=== PATIENT | male | born 1955 | race Asian ===

== ENCOUNTER → 2018-04-18 09:30 | Outpatient (CLI) | payer MEDICARE, SELFPAY ==
[2018-04-18 10:01] LABS: Kit/Specimen SENT
== END ==
PROVIDERS: PCP Nurse Practitioner Family; Visit Provider Internal Medicine
DX: N18.6 End stage renal disease (principal)
CPT/HCPCS: 36415

== ENCOUNTER → 2018-05-16 09:55 | Outpatient (CLI) | payer MEDICARE, SELFPAY ==
[2018-05-16 10:29] LABS: Kit/Specimen SENT
== END ==
PROVIDERS: PCP Nurse Practitioner Family; Visit Provider Internal Medicine
DX: N18.6 End stage renal disease (principal); N25.81 Secondary hyperparathyroidism of renal origin
CPT/HCPCS: 36415

== ENCOUNTER → 2018-05-16 09:58 | Outpatient (REF) | payer MEDICARE, SELFPAY ==
[2018-05-16 10:21] LABS: Kit/Specimen SENT
== END ==
LOC: LBN 09:58
PROVIDERS: PCP Nurse Practitioner Family; Visit Provider Internal Medicine
DX: N18.6 End stage renal disease (principal); Z49.32 Encounter for adequacy testing for peritoneal dialysis

== ENCOUNTER 2018-05-29 11:20 | Outpatient (CLI) | payer MEDICARE, SELFPAY ==
[2018-05-29 12:47] LABS: Kit/Specimen SENT
== END 2018-05-29 11:40 ==
PROVIDERS: PCP Nurse Practitioner Family; Visit Provider Internal Medicine Nephrology
DX: N18.6 End stage renal disease (principal); N25.81 Secondary hyperparathyroidism of renal origin
CPT/HCPCS: 36415

== ENCOUNTER 2018-05-29 14:06 | Outpatient (REF) | payer MEDICARE, SELFPAY ==
[2018-05-29 14:36] LABS: Kit/Specimen SENT
== END 2018-05-29 14:26 ==
LOC: LBN 14:06
PROVIDERS: PCP Nurse Practitioner Family; Visit Provider Internal Medicine
DX: N18.6 End stage renal disease (principal); Z49.32 Encounter for adequacy testing for peritoneal dialysis

== ENCOUNTER 2018-05-29 19:10 | Emergency (ER) | payer MEDICARE, SELFPAY ==
[2018-05-29] VITALS (26 sets, daily range): BP systolic 110–156; BP diastolic 65–91; PULSE 77–111; RESP 12–29; TEMP 36.6–37.1; O2SAT 92–100
--- NOTE | 2018-05-29 20:03 | DI.CT_ITS ---
SYMPTOM/DIAGNOSIS: DIFFUSE ABD PAIN ABDOMEN AND PELVIC CT: CT scan of the abdomen and pelvis was performed without intravenous or oral contrast material. Comparison MRI of the thoracic spine is 04/11/18. Mild dependent atelectatic changes are seen in the lung bases. There is a small hiatal hernia. The liver is normal in size. There are two hypodense masses seen within the liver. There is a 2.1 cm. mass in the dome of the right lobe of the liver. The second lesion is seen in the posterior segment of the liver inferiorly and measures 2 cm. in maximum diameter. The gallbladder is negative. No biliary ductal dilatation is seen. The unenhanced visualized portions of the pancreas, spleen and adrenal glands are unremarkable. There is marked atrophy of the kidneys bilaterally. This was present on prior MRI examinations. The urinary bladder is intact. There is diffuse concentric thickening of the wall of the urinary bladder. This may be due to inflammatory or infectious process. The reproductive organs are unremarkable. Note is made of vasectomy clips. There are bilateral small fat containing inguinal hernias present. There is atherosclerosis of the abdominal aorta but no aneurysmal dilatation. No significant abdominal or pelvic adenopathy or pneumoperitoneum is present. There is a catheter seen entering the right abdominal wall encoiled in the pelvis most consistent with peritoneal dialysis. There is a moderate amount of fluid in the pelvis likely reflecting peritoneal dialysis. The bowel shows no evidence of obstruction or inflammation. Mild degenerative changes are seen in the spine. Post laminectomy changes are seen at T 11 and T 12. Incidental note is made of a lipoma in the paraspinal soft tissues at approximately T 7. This was present on the MRI of the thoracic spine from 04/11/18. IMPRESSION: 1. No evidence of an acute abdomen or pelvis. 2. Two indeterminate hepatic lesions seen on this noncontrast examination. Further evaluation may be obtained with hepatic ultrasound or post contrast CT scan of the abdomen. 3. Atrophic kidneys with findings consistent with peritoneal dialysis. Fluid in the pelvis likely reflecting peritoneal dialysis. 4. Mild concentric bladder wall thickening which may reflect chronic inflammatory process.
--- NOTE | 2018-05-29 20:07 | ED.GENADUL_ITS ---
Discharge Plan Disposition Patient Disposition: HOME Condition: Stable Discharge Details Chief Complaint: Abd Prob Clinical Impression: Pancreatitis Primary Care Provider: Madie Thomas ED Provider: Stiven De Los Santos Home Meds and New Rx's Prescriptions: New ondansetron HCl [Zofran] 4 mg tablet 4 mg PO TID PRN (Reason: nausea and vomiting) 5 Days Qty: 30 RF: 0 oxycodone 5 mg tablet 5 mg PO Q4H PRN (Reason: pain) Qty: 12 RF: 0 Continue sevelamer carbonate [Renvela] 800 MG tablet 800 mg PO TID RF: 0 docusate sodium [DOK] 100 MG capsule 200 mg PO DAILY RF: 0 B complex-vitamin C-folic acid [Mary Ellen-Kaci] 0.8 MG tablet 0.8 mg PO RF: 0 amlodipine 10 MG tablet 10 mg PO DAILY Qty: 90 RF: 3 albuterol sulfate [ProAir HFA] 8.5 GM HFA aerosol inhaler 1 - 2 puff Inhalation Q4-6H PRN Qty: 1 RF: 1 fluticasone [Flovent HFA] 10.6 GM HFA aerosol inhaler 1 puff Inhalation BID Qty: 3 RF: 3 blood sugar diagnostic [OneTouch Ultra Test] 1 EACH strip 1 ea Miscellaneous BID Qty: 200 RF: 0 calcitriol 0.25 MCG capsule 0.25 mcg PO DAILY RF: 0 atorvastatin 40 MG tablet 40 mg PO DAILY Qty: 90 RF: 3 pantoprazole 20 MG tablet,delayed release (DR/EC) 40 mg PO DAILY Qty: 90 RF: 3 sertraline 50 MG tablet 50 mg PO DAILY Qty: 90 RF: 3 metoprolol tartrate 50 MG tablet 50 mg PO BID Qty: 180 RF: 3 Discharge Instructions Instructions: Oxycodone, Rapid Release (By mouth), Pancreatitis (ED) Additional Instructions: follow up with your primary care provider within a week if you have worsening pain, fevers, persistent vomit or feel more ill return to the emergency department for pain you can take 1000mg tylenol and 600mg ibuprofen every 6 hours. IF you need additional pain relief take 1 oxycodone Discharge Data Discharge Physician: Stiven De Los Santos Medical Decision Making MDM Narrative Medical decision making narrative: 62 yo male with hx of esrd on home dialysis, t2dm, htn, who comes in with acute onset abdominal pain starting around 4pm while at home, denies having this pain in the past. He has a distended abdomen and he is not sure if this is new or not for him, does have tenderness throughout the abdomen on exam. Will obtain CT to eval for pneumoperiotneum, cholecystitis, and lab work to eval for hepatitis vs pancreatitis. Also possibility of peritoneal fluid infection given his home dialysis, but patient is adamant that his fluid is clear that he used today and has had infection before and the fluid was cloudy and doesn't want his fluid evaluated at this time. He has capacity to make his own decisions and understands the risks of missing an infection including and disablity Pt remains stable, feels much better with pain meds, awaiting labs and imaging pt remains hd stable. labs show pancreatitis and leukocytosis likely from the pancreatitis, pt denies alcohol, and ct shows no acute findings. HE no longer has pain on abdominal exam. I recommended admission and spoke with nursing table games dual rate supervisor who stated that home peritoneal dialysis patients can be admitted here, but the patient declined admission at this time. He has the capacity to make his own decisions and understands the risks of leaving with pancreatitis including worsening pain and developing ards, and becoming disabled or dying and is willing to accept these risks. I am going to send him home with pain medication to take at home and will try to get expedited outpatient pcp appt. He understands he can return if he changes his mind and also understands to return immediately if pain is worse, he has shortness of breath or feels more ill in any way Differential Diagnosis pneumoperitoneum, pancreatitis, cholceystitis Imaging Data Radiologic Study: Attestation: I personally reviewed and interpreted this imaging study as follows: Imaging: CT Scan Radiologist's impression: no acute findings Lab Data Lab results reviewed: Yes I reviewed the patient's lab results. HPI - General Adult General Date/Time Provider Initiated Documentation: 05/29/18 19:38 . Limitations to Documentation: no limitations . Information obtained by: patient . History of Present Illness 62 year old M presents to the emergency department with the chief complaint of abdominal pain, described as severe, with intensity rated at 8. Quality is described as sharp, and is localized to the abdomen. Patient reports no radiation. Patient started experiencing this hour(s) (4) and it has been constant. No relieving factors improve symptom(s), No exacerbating factors reported . Patient notes no other symptoms.. Patient did receive the following treatments prior to arrival, none Related Data Home Medications Medication Instructions Recorded Confirmed sevelamer carbonate [Renvela] 800 mg PO TID tab-cap 03/08/17 B complex-vitamin C-folic acid 0.8 mg PO 10/15/17 [Mary Ellen-Kaci] docusate sodium [DOK] 200 mg PO DAILY tab-cap 10/15/17 calcitriol 0.25 mcg PO DAILY tab-cap 01/07/18 Previous Rx's Medication Instructions Recorded albuterol sulfate [ProAir HFA] 1 - 2 puff INHALATION Q4-6H PRN #1 10/15/17 inhaler amlodipine 10 mg PO DAILY #90 tab-cap 10/15/17 fluticasone [Flovent HFA] 1 puff INHALATION BID #3 inhaler 11/02/17 blood sugar diagnostic [OneTouch #200 strip 12/03/17 Ultra Test] atorvastatin 40 mg PO DAILY #90 tab-cap 03/07/18 pantoprazole 40 mg PO DAILY #90 tab-cap 03/07/18 sertraline 50 mg PO DAILY #90 tab-cap 03/07/18 metoprolol tartrate 50 mg PO BID #180 tab-cap 05/13/18 ondansetron HCl [Zofran] 4 mg PO TID PRN 5 Days #30 tab 05/29/18 oxycodone 5 mg PO Q4H PRN #12 tab 05/29/18 Allergies Allergy/AdvReac Type Severity Reaction Status Date / Time No Known Allergies Allergy Unverified 05/29/18 22:10 General Stated Complaint: Abd Prob ANIL: 3 Review of Systems Review of Systems All systems reviewed & are unremarkable except as noted in HPI and below Constitutional Denies chills, Denies fever(s) and Denies weakness Eyes Patient Denies loss of vision ENT Denies change in voice Cardiovascular Denies chest pain and Denies dyspnea Respiratory Denies dyspnea Gastrointestinal Denies vomiting Genitourinary Denies dysuria Musculoskeletal Denies joint swelling Integumentary/Breasts Denies rash Neurologic Denies loss of vision and Denies weakness Psychiatric Denies depression Endocrine Denies cold intolerance and Denies heat intolerance Allergic/Immunologic Reports urticaria PFSH Family History Mother Osteoarthritis Father No problems noted. Brother No problems noted. Brother No problems noted. Brother No problems noted. Brother No problems noted. Sister No problems noted. Medical History Asthma ESRD (end stage renal disease) HLD (hyperlipidemia) HTN (hypertension) Schwannoma of spinal cord T2DM (type 2 diabetes mellitus) Social History Smoking/Tobacco Use Status: Former Tobacco Use Surgical History Peritoneal Shunt T11-T12 Laminectomy & Subtotal Resection of a Schwannoma motor nerve root (11/22) Tunneled hemodialysis catheter placement (05/25/17) Exam Const General: no acute distress Orientation: alert HENMT Head: normal to inspection Ears: external ears normal General nose exam: external nose normal Mouth: moist mucous membranes Eyes General: appearance normal, both eyes and all related structures Neck Neck: normal visual inspection Resp Effort & Inspection: normal respiratory effort and able to speak in complete sentences Cardio Rate: regular rate GI Inspection: distended Palpation: tender in the LLQ, in the RLQ and in the RUQ Skin General skin exam: no rashes or lesions noted Neuro General: alert and oriented x3 Extrem General: normal to inspection Psych Mental Status: mental status grossly normal Course Vital Signs Temperature 36.6 C 05/29/18 19:28 Pulse 77 05/29/18 19:28 Respiratory Rate 05/29/18 19:28 Blood Pressure 117/65 05/29/18 19:28 Pulse Oximetry 97 05/29/18 19:28 Temperature 36.6 C 05/29/18 19:28 Pulse 77 05/29/18 19:28 Respiratory Rate 12 05/29/18 19:28 Blood Pressure 117/65 05/29/18 19:28 Pulse Oximetry 97 05/29/18 19:28
[2018-05-29] MEDS: Normal Saline Flush 10 ML SYR IVP (20:22)
[2018-05-29] MEDS: HYDROmorphone 2 MG/ML VIAL 1 MG IVP (20:22)
[2018-05-29 20:38] LABS: Abs Immature Grans 0.15 k/cumm (0.0-0.09); Basophils % 0.2; HCT 35.8 % (40.0-50.0); HGB 11.8 g/dL (13.5-17.5); Mean Corpuscular Hemoglobin 24.6 pg (27.0-33.0); Mean Corpuscular Volume 74.7 fL (80-95); RBC 4.79 m/cumm (4.50-6.00); RBC Distribution Width 17.3 % (11.8-14.1); White Blood Cell Count 18.48 k/cumm (4.4-10.8)
[2018-05-29 20:54] LABS: ALT 36 U/L (12-78); AST 17 U/L (15-37); Alkaline Phosphatase 252 U/L (46-116); Anion Gap 12.4 mmol/L (3-11); BUN 67 mg/dL (7-18); Bilirubin, Total 0.3 mg/dL (0.2-1.0); CO2 26.6 mmol/L (21.0-32.0); Calcium 8.7 mg/dL (8.5-10.1); Chloride 92 mmol/L (98-107); Estimated GFR 3.95 (mL/min/1.73m2); Glucose 182 mg/dL (70-100); Lipase 776 U/L (73-393); Sodium 131 mmol/L (136-145); Total Protein 7.8 g/dL (6.4-8.2)
[2018-05-29 21:03] LABS: CREATININE 12.85 mg/dL (0.70-1.30); Potassium 2.9 mmol/L (3.5-5.1)
[2018-05-29 21:07] LABS: Absolute Basophil Count 0.04 k/cumm (0.0-0.2)
[2018-05-29 21:35] LABS: Prothrombin Time 9.4 sec (9.3-10.8)
[2018-05-29] MEDS: Potassium Chloride 20 MEQ TABCR 40 MEQ PO (21:35)
[2018-05-29 22:03] LABS: Absolute Neutrophil Count 14.41 k/cumm (1.2-6.7)
--- NOTE | 2018-05-29 22:03 | DI.VRAD_ITS ---
EXAM: CT Abdomen and Pelvis Without Intravenous Contrast CLINICAL HISTORY: 62 years old, male; Pain; Abdominal pain; Additional info: Pt spoke very little azeri, did not understand breathing instructions. TECHNIQUE: Axial computed tomography images of the abdomen and pelvis without intravenous contrast. Coronal and sagittal reformatted images were created and reviewed. COMPARISON: Abdominal radiographs 05/17/2017. FINDINGS: Lung bases: Dependent changes in the lung bases. Mediastinum: Small hiatal hernia. ABDOMEN: Liver: Low attenuation indeterminate lesions in the liver measuring 2.0 cm near the hepatic dome and 1.9 cm in the inferior right lobe, incompletely evaluated without intravenous contrast. Gallbladder and bile ducts: Unremarkable. No calcified stones. No ductal dilation. Pancreas: Unremarkable. No ductal dilation. Spleen: Unremarkable. No splenomegaly. Adrenals: Unremarkable. No mass. Kidneys and ureters: Bilateral severe renal atrophy in the [place] kidneys. No obstructing stones. No hydronephrosis. Stomach and bowel: Unremarkable. No obstruction. No mucosal thickening. PELVIS: Appendix: No findings to suggest acute appendicitis. Bladder: Mild circumferential bladder wall thickening with mild submucosal fat deposition anteriorly, likely related to chronic inflammation. No stones. Reproductive: Vasectomy clips. ABDOMEN and PELVIS: Intraperitoneal space: Moderate volume of ascites, most likely related to peritoneal dialysis. No free air. Bones/joints: No acute fracture. No dislocation. Soft tissues: 4.2 cm lipoma in the right paraspinal muscles. Periumbilical scarring. Small fat-containing inguinal hernias. Vasculature: Mild atherosclerotic calcification. No abdominal aortic aneurysm. Lymph nodes: Unremarkable. No enlarged lymph nodes. Tubes, lines and devices: Percutaneous catheter entering the right anterior abdominal wall and coiling in the pelvis, consistent with a peritoneal dialysis catheter. No fluid collection along the course of the catheter. IMPRESSION: 1. No acute findings in the abdomen or pelvis. 2. Indeterminate liver lesions in the right lobe, incompletely characterized without intravenous contrast. Further evaluation with right upper quadrant ultrasound and/or contrast-enhanced imaging if clinically possible is recommended. 3. Peritoneal dialysis catheter with moderate volume of ascites, likely related to peritoneal dialysis. No fluid collection in the course of the catheter. 4. Mild circumferential bladder wall thickening likely related to chronic cystitis. 5. Small hiatal hernia. Dictated and Authenticated by: Liliya Pradhan MD. Ordering:SHYAM JEAN MD
[2018-05-29 22:04] LABS: Absolute Eosinophil Count 0.37 k/cumm (0.0-0.7); Absolute Lymphocyte Count 2.96 k/cumm (1.2-3.4); Absolute Monocyte Count 0.74 k/cumm (0.11-0.7); Atypical Lymphocytes % 4
[2018-05-29 22:05] LABS: Anisocytosis 1+; Nucleated RBC 1 /100WBC; Poikilocytes 2+
[2018-05-29 22:06] LABS: Microcytosis 1+
[2018-05-29 22:12] LABS: Platelet Count 370 x1000/uL (130-400)
[2018-05-29 22:14] LABS: Diff Comment Manual Differential
[2018-05-29] MEDS: oxyCODONE 5 MG TAB PO (22:27)
[2018-05-29] MEDS: oxyCODONE 5 MG TAB 10 MG (22:28)
[2018-05-29] MEDS: Ondansetron O.D.T. 4 MG TABEF PO (22:28)
--- NOTE | 2018-05-30 11:35 | PDOC.ERCMPRO ---
Care Management Progress Note 05/30/18-Pt seen on 05/29/[address] Yves De Los Santos. F/u request ABY faxed to [facility]. as Pt's PCP, is Madie Thomas NP.
== END 2018-05-29 22:42 | disposition home or self-care (01) ==
PROVIDERS: Emergency Provider Emergency Medicine; PCP Nurse Practitioner Family
DX: K85.90 Acute pancreatitis without necrosis or infection, unspecified (principal); E87.6 Hypokalemia; Z53.29 Procedure and treatment not carried out because of patient's decision for other reasons; E11.22 Type 2 diabetes mellitus with diabetic chronic kidney disease; I12.0 Hypertensive chronic kidney disease with stage 5 chronic kidney disease or end stage renal disease; N18.6 End stage renal disease; Z99.2 Dependence on renal dialysis
CPT/HCPCS: 36415; 80053; 83690; 93005; 96374; 99285; 74176; 85025; 85610; 93010

== ENCOUNTER 2018-06-03 19:15 | Outpatient (REF) | payer MEDICARE, SELFPAY ==
[2018-06-03 20:18] LABS: ALT 10 U/L (12-78); AST 19 U/L (15-37); Albumin 2.5 g/dL (3.4-5.0); Alkaline Phosphatase 194 U/L (46-116); Anion Gap 11.7 mmol/L (3-11); BUN 54 mg/dL (7-18); Bilirubin, Total 0.2 mg/dL (0.2-1.0); CO2 28.3 mmol/L (21.0-32.0); Calcium 8.6 mg/dL (8.5-10.1); Chloride 89 mmol/L (98-107); Glucose 211 mg/dL (70-100); Lipase 603 U/L (73-393); Sodium 129 mmol/L (136-145); Total Protein 6.9 g/dL (6.4-8.2)
[2018-06-03 20:29] LABS: CREATININE 12.19 mg/dL (0.70-1.30); Potassium 2.9 mmol/L (3.5-5.1)
[2018-06-03 21:07] LABS: Abs Immature Grans 0.27 k/cumm (0.0-0.09); HCT 35.3 % (40.0-50.0); HGB 11.6 g/dL (13.5-17.5); Mean Corp. HGB Concentration 32.9 g/dL (32.0-36.0); Mean Corpuscular Hemoglobin 24.4 pg (27.0-33.0); Mean Corpuscular Volume 74.3 fL (80-95); Mean Platelet Volume 9.8 fL (8.0-11.0); Platelet Count 336 x1000/uL (130-400); RBC 4.75 m/cumm (4.50-6.00); White Blood Cell Count 10.43 k/cumm (4.4-10.8)
[2018-06-03 21:40] LABS: Absolute Eosinophil Count 0.83 k/cumm (0.0-0.7); Absolute Lymphocyte Count 1.04 k/cumm (1.2-3.4); Absolute Monocyte Count 1.04 k/cumm (0.11-0.7); Diff Comment Manual Differential; Microcytosis 3+
== END 2018-06-03 19:35 ==
LOC: NCHCN 19:15
PROVIDERS: Nurse Practitioner Adult Health; PCP Nurse Practitioner Family; Visit Provider Nurse Practitioner Family
DX: K85.90 Acute pancreatitis without necrosis or infection, unspecified (principal); E87.6 Hypokalemia; E87.1 Hypo-osmolality and hyponatremia; R74.9 Abnormal serum enzyme level, unspecified
CPT/HCPCS: 80053; 83690; 85025

== ENCOUNTER 2018-06-10 16:34 | Outpatient (REF) | payer SELFPAY ==
[2018-06-10 19:44] LABS: Potassium 3.4 mmol/L (3.5-5.1); Sodium 132 mmol/L (136-145)
== END 2018-06-10 16:54 ==
LOC: LBN 16:34
PROVIDERS: PCP Nurse Practitioner Family; Visit Provider Nurse Practitioner Adult Health
DX: E87.1 Hypo-osmolality and hyponatremia (principal); E87.6 Hypokalemia
CPT/HCPCS: 84132; 84295

== ENCOUNTER 2018-06-14 00:23 | Outpatient (CLI) | payer MEDICARE, SELFPAY ==
--- NOTE | 2018-06-14 07:19 | DI.US_ITS ---
SYMPTOM/DIAGNOSIS: LIVER LESIONS ON CT X2. ABNL CT OF LIVER R93.2 ABDOMINAL ULTRASOUND: Comparison CT is 05/29/18. The aorta was not imaged on this examination. The IVC is unremarkable. The liver measures 16 cm in length. There is antegrade flow of the portal vein. There is a 1.6 x 1.7 x 1.4 cm slightly hyperechoic mass within the lateral inferior aspect of the right lobe of the liver. This appears to correspond to one of the hepatic lesions seen on the CT scan. The second hepatic lesion could not be visualized. No other hepatic lesions are seen. The hepatic surface appears mildly lobulated raising the question of hepatic cirrhosis. The gallbladder is contracted. No biliary ductal dilatation is seen. The common duct is within normal limits at 0.7 cm. The pancreas could not be seen due to overlying bowel gas. The spleen is normal in size and appearance sonographically. The kidneys appear atrophic measuring on the right 6.6 cm in length and the left measuring 6.7 cm in length. No renal masses, calculi or obstruction is seen. There is a small to moderate amount of perihepatic and perisplenic ascites. IMPRESSION: 1. 1.7 cm slightly hyperechoic mass seen in the right lobe of the liver inferiorly corresponding to the findings seen on the CT scan of the abdomen. It is nonspecific sonographically. A benign lesion such as an hemangioma could not be entirely excluded. If further imaging is warranted post contrast CT scan of the abdomen or an MRI should be considered for further evaluation. 2. Bilateral renal atrophy 3. Small to moderate amount of abdominal ascites.
== END 2018-06-14 00:43 ==
PROVIDERS: PCP Nurse Practitioner Family; Visit Provider Nurse Practitioner Adult Health
DX: D49.0 Neoplasm of unspecified behavior of digestive system (principal); N26.1 Atrophy of kidney (terminal); R18.8 Other ascites
CPT/HCPCS: 76700

== ENCOUNTER 2018-06-15 01:01 | Emergency (ER) | payer MEDICARE, SELFPAY ==
[2018-06-15] VITALS (15 sets, daily range): BP systolic 119–127; BP diastolic 69–83; PULSE 82–119; RESP 11–22; TEMP 36.8; O2SAT 94–100
--- NOTE | 2018-06-15 01:23 | W.ED.GENAD ---
Discharge Plan Disposition Patient Disposition: HOME Condition: Good Discharge Details Chief Complaint: Allergic Clinical Impression: Hives of unknown origin Primary Care Provider: Madie Thomas ED Provider: Ivan Root [place] Meds and New Rx's Prescriptions: New prednisone 20 mg tablet 40 mg PO DAILY Qty: 8 RF: 0 ranitidine HCl [Zantac] 150 mg tablet 150 mg PO BID Qty: 14 RF: 0 diphenhydramine HCl [Benadryl] 25 mg capsule 50 mg PO Q6H PRN (Reason: itching) Qty: 30 RF: 0 Continue sevelamer carbonate [Renvela] 800 MG tablet 800 mg PO TID RF: 0 docusate sodium [DOK] 100 MG capsule 200 mg PO DAILY RF: 0 B complex-vitamin C-folic acid [Mary Ellen-Kaci] 0.8 MG tablet 0.8 mg PO RF: 0 amlodipine 10 MG tablet 10 mg PO DAILY Qty: 90 RF: 3 albuterol sulfate [ProAir HFA] 8.5 GM HFA aerosol inhaler 1 - 2 puff Inhalation Q4-6H PRN Qty: 1 RF: 1 fluticasone [Flovent HFA] 10.6 GM HFA aerosol inhaler 1 puff Inhalation BID Qty: 3 RF: 3 calcitriol 0.25 MCG capsule 0.25 mcg PO DAILY RF: 0 atorvastatin 40 MG tablet 40 mg PO DAILY Qty: 90 RF: 3 pantoprazole 20 MG tablet,delayed release (DR/EC) 40 mg PO DAILY Qty: 90 RF: 3 sertraline 50 MG tablet 50 mg PO DAILY Qty: 90 RF: 3 metoprolol tartrate 50 MG tablet 50 mg PO BID Qty: 180 RF: 3 oxycodone 5 mg tablet 5 mg PO Q4H PRN (Reason: pain) Qty: 12 RF: 0 No Action blood sugar diagnostic [OneTouch Ultra Test] 1 EACH strip 1 ea Miscellaneous BID Qty: 200 RF: 0 Discharge Instructions Instructions: Ranitidine (By mouth), Prednisone (By mouth), Diphenhydramine (By mouth), Urticaria (ED) Additional Instructions: Medications as prescribed to help resolve the hives. Follow-up with primary care next week. Return to ED for difficulty breathing, difficulty swallowing, throat swelling, chest pain, fainting, fever, other concerns. Referrals: Madie Thomas NP [Primary Care Provider] - Medical Decision Making Patient presenting with hives of unknown etiology. His lungs are clear. His saturations are good. He has no oropharyngeal edema. I do not think this is anaphylaxis. IV established and he is given IV Benadryl, IV Pepcid, IV Solu-Medrol. Within about an hour or so his itching had resolved and the hives were fading. Patient will be discharged home on same medications for the weekend. He is told to keep an eye on his sugars as the prednisone could raise them. He is asked to follow-up with primary care next week. Return to ED for increased difficulty breathing, throat swelling or difficulty swallowing, chest pain, other concerns. Medical Records Medical records reviewed: Yes I reviewed the patient's medical records. HPI General Mode of arrival: ambulatory. Date/Time Provider Initiated Documentation: 06/15/18 01:22. Limitations to Documentation: no limitations. Information obtained by: patient and RN notes reviewed. HPI Narrative: Patient presents to ED with complaints of rash and itching that started this afternoon. He was doing peritoneal dialysis when it started. There is nothing new that he is aware of. There is no new medications or dialysate fluid. He has not had this problem before. He has not been ill prior. He has diffuse rash which itches all over. He denies difficulty breathing or chest pain. Throat feels a little scratchy to him but not swollen. There is no change in voice. He is not taking anything including Benadryl for the rash. He presents now for evaluation. Related Data Home Medications Medication Instructions Recorded Confirmed sevelamer carbonate [Renvela] 800 mg PO TID tab-cap 03/08/17 06/15/18 B complex-vitamin C-folic acid 0.8 mg PO 10/15/17 06/10/18 [Mary Ellen-Kaci] albuterol sulfate [ProAir HFA] 1 - 2 puff INHALATION Q4-6H PRN #1 10/15/17 06/15/18 inhaler amlodipine 10 mg PO DAILY #90 tab-cap 10/15/17 06/15/18 docusate sodium [DOK] 200 mg PO DAILY tab-cap 10/15/17 06/15/18 fluticasone [Flovent HFA] 1 puff INHALATION BID #3 inhaler 11/02/17 06/15/18 blood sugar diagnostic [OneTouch #200 strip 12/03/17 06/10/18 Ultra Test] calcitriol 0.25 mcg PO DAILY tab-cap 01/07/18 06/15/18 atorvastatin 40 mg PO DAILY #90 tab-cap 03/07/18 06/15/18 pantoprazole 40 mg PO DAILY #90 tab-cap 03/07/18 06/15/18 sertraline 50 mg PO DAILY #90 tab-cap 03/07/18 06/15/18 metoprolol tartrate 50 mg PO BID #180 tab-cap 05/13/18 06/15/18 oxycodone 5 mg PO Q4H PRN #12 tab 05/29/18 06/15/18 diphenhydramine HCl [Benadryl] 50 mg PO Q6H PRN #30 cap 06/15/18 prednisone 40 mg PO DAILY #8 tab 06/15/18 ranitidine HCl [Zantac] 150 mg PO BID #14 tab 06/15/18 Previous Rx's Medication Instructions Recorded albuterol sulfate [ProAir HFA] 1 - 2 puff INHALATION Q4-6H PRN #1 10/15/17 inhaler amlodipine 10 mg PO DAILY #90 tab-cap 10/15/17 fluticasone [Flovent HFA] 1 puff INHALATION BID #3 inhaler 11/02/17 blood sugar diagnostic [OneTouch #200 strip 12/03/17 Ultra Test] atorvastatin 40 mg PO DAILY #90 tab-cap 03/07/18 pantoprazole 40 mg PO DAILY #90 tab-cap 03/07/18 sertraline 50 mg PO DAILY #90 tab-cap 03/07/18 metoprolol tartrate 50 mg PO BID #180 tab-cap 05/13/18 oxycodone 5 mg PO Q4H PRN #12 tab 05/29/18 diphenhydramine HCl [Benadryl] 50 mg PO Q6H PRN #30 cap 06/15/18 prednisone 40 mg PO DAILY #8 tab 06/15/18 ranitidine HCl [Zantac] 150 mg PO BID #14 tab 06/15/18 Allergies Allergy/AdvReac Type Severity Reaction Status Date / Time No Known Allergies Allergy Unverified 06/15/18 01:12 General Stated Complaint: Allergic ANIL: 2 Review of Systems Constitutional Denies chills, Denies fever(s), Denies headache(s), Denies malaise and Denies weakness Eyes Denies change in vision, Denies eye discharge, Denies irritation and Denies itchy eyes ENT Denies change in voice, Denies dysphagia, Denies headache(s), Denies lip swelling, Denies throat swelling and Denies tongue swelling Cardiovascular Denies chest pain, Denies diaphoresis, Denies syncope and Denies dyspnea Respiratory Denies cough and Denies dyspnea Gastrointestinal Denies abdominal pain, Denies dysphagia, Denies diarrhea, Denies nausea and Denies vomiting Musculoskeletal Denies myalgias, Denies arthralgias and Denies numbness Integumentary/Breasts Reports pruritus and Reports rash Neurologic Denies syncope, Denies headache(s), Denies numbness and Denies weakness Allergic/Immunologic Denies itchy eyes, Denies lip swelling, Denies throat swelling and Denies tongue swelling PFSH Family History Mother Osteoarthritis Father No problems noted. Brother No problems noted. Brother No problems noted. Brother No problems noted. Brother No problems noted. Sister No problems noted. Medical History Peritonitis associated with peritoneal dialysis (Acute) Asthma ESRD (end stage renal disease) HLD (hyperlipidemia) HTN (hypertension) Schwannoma of spinal cord T2DM (type 2 diabetes mellitus) Social History Hx Recent Travel: Yes Smoking/Tobacco Use Status: Former Tobacco Use alcohol intake: former substance use type: does not use Surgical History Peritoneal Shunt T11-T12 Laminectomy & Subtotal Resection of a Schwannoma motor nerve root (11/23/15) Tunneled hemodialysis catheter placement (05/25/17) Exam Const General: cooperative, comfortable and no acute distress Nutritional Appearance: obese Orientation: alert and oriented x3 HENMT Head: normocephalic and atraumatic Mouth: oropharynx normal Throat: posterior oropharynx normal, uvula midline and no uvular edema Eyes Cornea: corneas normal Resp Effort & Inspection: normal respiratory effort and no stridor Auscultation: clear to auscultation bilaterally and no wheezes Cardio Rate: regular rate Rhythm: regular rhythm Heart Sounds: S1 normal and S2 normal GI Palpation: soft, not firm and nontender Skin Rashes: rashes noted (diffuse hives) Neuro General: alert, oriented x3, no focal motor deficits and CN's II-XI intact bilaterally Extrem General: normal to inspection and full ROM Course Vital Signs Temperature 98.2 F 06/15/18 01:10 Pulse 118 H 06/15/18 01:10 Respiratory Rate 22 06/15/18 01:10 Blood Pressure 120/83 06/15/18 01:10 Pulse Oximetry 95 06/15/18 01:10 Temperature 98.2 F 06/15/18 01:10 Temperature Source Temporal Artery Scan 06/15/18 01:10 Pulse 118 H 06/15/18 01:10 Respiratory Rate 22 06/15/18 01:10 Respiratory Effort 06/15/18 01:13 Respiratory Pattern Tachypnea 06/15/18 01:13 Blood Pressure 120/83 06/15/18 01:10 Pulse Oximetry 95 06/15/18 01:10 Oxygen Delivery Method Room Air 06/15/18 01:10 Oxygen Flow Rate 0 06/15/18 01:10 Pain Level 10 06/15/18 01:10
[2018-06-15] MEDS: Normal Saline Flush 10 ML SYR IVP (01:42)
[2018-06-15] MEDS: methylPREDNISolone SUCC 125 MG VIAL IVP (01:42)
[2018-06-15] MEDS: diphenhydrAMINE 50 MG/ML VIAL IVP (01:42)
[2018-06-15] MEDS: FAMOTIDINE 20 MG/50 ML BAG 100 MG IVPB (01:42)
== END 2018-06-15 02:28 | disposition home or self-care (01) ==
PROVIDERS: Emergency Provider Emergency Medicine; PCP Nurse Practitioner Family
DX: L50.9 Urticaria, unspecified (principal); I12.0 Hypertensive chronic kidney disease with stage 5 chronic kidney disease or end stage renal disease; N18.6 End stage renal disease; Z99.2 Dependence on renal dialysis; E11.22 Type 2 diabetes mellitus with diabetic chronic kidney disease
CPT/HCPCS: 96365; 96375; 99285; 99284; J1200; J2930

== ENCOUNTER 2018-06-19 08:27 | Outpatient (CLI) | payer MEDICARE, SELFPAY ==
[2018-06-19 08:52] LABS: Kit/Specimen SENT
== END 2018-06-19 08:47 ==
PROVIDERS: PCP Nurse Practitioner Family; Visit Provider Internal Medicine
DX: N18.6 End stage renal disease (principal)
CPT/HCPCS: 36415

== ENCOUNTER 2018-06-19 09:19 | Outpatient (REF) | payer MEDICARE, SELFPAY ==
[2018-06-19 09:29] LABS: Kit/Specimen SENT
== END 2018-06-19 09:39 ==
LOC: LBN 09:19
PROVIDERS: PCP Nurse Practitioner Family; Visit Provider Internal Medicine
DX: N18.6 End stage renal disease (principal); Z49.32 Encounter for adequacy testing for peritoneal dialysis

== ENCOUNTER 2018-07-02 01:17 | Outpatient (CLI) | payer MEDICARE, SELFPAY ==
--- NOTE | 2018-07-02 10:00 | DI.MRI_ITS ---
SYMPTOM/DIAGNOSIS: CHARACTERIZE LIVER MASS, F/U ABNL US, R16.0, HEPATOMEGALY, R93.2 ABDOMEN MRI: There are artifacts due to an implanted device. Motion artifacts are also demonstrated. Ascitic fluid is noted in the abdomen. Contrast material was not administered in this patient who is on dialysis. A lower right hepatic lobe mass has a maximal diameter of 1.4 cm. A mass in the hepatic dome measures approximately 2 by 1.2 cm. Both of these lesions may represent a cyst or hemangioma. If clinically feasible in this patient who is on dialysis, a multi phasic with intravenous enhanced CT is suggested for further review.
== END 2018-07-02 01:37 ==
PROVIDERS: PCP Nurse Practitioner Family; Visit Provider Nurse Practitioner Adult Health
DX: R16.0 Hepatomegaly, not elsewhere classified (principal); R18.8 Other ascites; R93.2 Abnormal findings on diagnostic imaging of liver and biliary tract; Z99.2 Dependence on renal dialysis
CPT/HCPCS: 74181

== ENCOUNTER 2018-07-22 09:59 | Outpatient (CLI) | payer MEDICARE, SELFPAY ==
[2018-07-22 10:27] LABS: Kit/Specimen SENT
== END 2018-07-22 10:19 ==
PROVIDERS: PCP Nurse Practitioner Family; Visit Provider Internal Medicine
DX: N18.6 End stage renal disease (principal)
CPT/HCPCS: 36415

== ENCOUNTER 2018-08-21 11:14 | Outpatient (CLI) | payer MEDICARE, SELFPAY ==
[2018-08-21 11:32] LABS: Kit/Specimen SENT
== END 2018-08-21 11:34 ==
PROVIDERS: PCP Nurse Practitioner Family; Visit Provider Internal Medicine
DX: N18.6 End stage renal disease (principal); Z49.32 Encounter for adequacy testing for peritoneal dialysis
CPT/HCPCS: 36415

== ENCOUNTER 2018-08-29 10:03 | Outpatient (CLI) | payer MEDICARE, SELFPAY ==
[2018-08-29 10:38] LABS: Kit/Specimen SENT
== END 2018-08-29 10:23 ==
PROVIDERS: PCP Nurse Practitioner Family; Visit Provider Internal Medicine
DX: N18.6 End stage renal disease (principal); Z49.32 Encounter for adequacy testing for peritoneal dialysis
CPT/HCPCS: 36415

== ENCOUNTER 2018-09-23 09:16 | Outpatient (CLI) | payer MEDICARE, SELFPAY ==
[2018-09-23 09:47] LABS: Kit/Specimen SENT
== END 2018-09-23 09:36 ==
PROVIDERS: PCP Nurse Practitioner Family; Visit Provider Internal Medicine
DX: N18.6 End stage renal disease (principal); Z49.32 Encounter for adequacy testing for peritoneal dialysis
CPT/HCPCS: 36415

== ENCOUNTER 2018-09-26 10:57 | Outpatient (CLI) | payer MEDICARE, SELFPAY ==
[2018-09-26 11:29] LABS: Kit/Specimen SENT
== END 2018-09-26 11:17 ==
PROVIDERS: Internal Medicine; PCP Nurse Practitioner Family; Visit Provider Nurse Practitioner Family
DX: N18.6 End stage renal disease (principal)
CPT/HCPCS: 36415

== ENCOUNTER 2018-10-03 00:39 | Outpatient (CLI) | payer MEDICARE, SELFPAY ==
--- NOTE | 2018-10-03 07:44 | DI.US_ITS ---
SYMPTOM/DIAGNOSIS: 6 MO F/U LIVER MASS, R16.0, HEPATOMEGALY ABDOMEN ULTRASOUND: Comparison ultrasound is 06/14/18. Comparison CT scan is 05/29/18. Comparison MRI is 07/02/18. The mid aorta was poorly visualized due to overlying bowel. The remainder of the aorta is unremarkable. There is limited visualization of the IVC. The liver is normal in size. There are two echogenic foci seen. There is one in the inferior lobe which measures 1.6 by 1.4 by 1.3 cm. No internal blood flow is seen. It is similar in size and location to the mass seen on the previous ultrasound. There is a second echogenic lesion seen in the lateral aspect of the right lobe measuring 1.7 by 1.4 by 1.5 cm. This corresponds to the mass seen on the MRI of the abdomen from 07/02/18. No new hepatic lesions are seen. There is a fixed echogenic 3 mm. focus on the wall of the gallbladder likely reflecting gallbladder polyp. No mobile stones, sludge, gallbladder wall thickening or pericholecystic fluid is seen. The common duct is within normal limits at .8 cm. The pancreas is not well visualized due to overlying bowel. The spleen is normal in size and appearance. There are again seen bilateral atrophy kidneys. The right kidney measures 6.2 cm. in length. The left kidney measures 6.0 cm. in length. No calculi or obstruction is identified. There is a small amount of free fluid seen in the upper abdomen. IMPRESSION: 1. Since 05/2018 and 06/2018, stable hepatic masses are seen sonographically. 2. Bilateral atrophic kidneys. 3. Small amount of abdominal ascites.
== END 2018-10-03 00:40 ==
PROVIDERS: PCP Nurse Practitioner Family; Visit Provider Nurse Practitioner Family
DX: R16.0 Hepatomegaly, not elsewhere classified (principal); R18.8 Other ascites; K82.4 Cholesterolosis of gallbladder
CPT/HCPCS: 76700

== ENCOUNTER 2018-10-04 11:01 | Outpatient (CLI) | payer MEDICARE, SELFPAY ==
[2018-10-04 11:22] LABS: Kit/Specimen SENT
== END 2018-10-04 11:21 ==
PROVIDERS: PCP Nurse Practitioner Family; Visit Provider Internal Medicine
DX: N18.6 End stage renal disease (principal); Z49.32 Encounter for adequacy testing for peritoneal dialysis
CPT/HCPCS: 36415

== ENCOUNTER 2018-10-04 11:05 | Outpatient (REF) | payer MEDICARE, SELFPAY ==
[2018-10-04 11:28] LABS: Kit/Specimen SENT
== END 2018-10-04 11:06 ==
LOC: LBN 11:05
PROVIDERS: PCP Nurse Practitioner Family; Visit Provider Internal Medicine
DX: N18.6 End stage renal disease (principal); Z49.32 Encounter for adequacy testing for peritoneal dialysis

== ENCOUNTER 2018-10-21 09:15 | Outpatient (CLI) | payer MEDICARE, SELFPAY ==
[2018-10-21 09:32] LABS: Kit/Specimen SENT
== END 2018-10-21 09:35 ==
PROVIDERS: PCP Nurse Practitioner Family; Visit Provider Internal Medicine
DX: N18.6 End stage renal disease (principal); Z49.32 Encounter for adequacy testing for peritoneal dialysis
CPT/HCPCS: 36415

== ENCOUNTER 2018-11-19 08:13 | Outpatient (CLI) | payer MEDICARE, SELFPAY ==
[2018-11-19 08:30] LABS: Kit/Specimen SENT
== END 2018-11-19 08:33 ==
PROVIDERS: PCP Nurse Practitioner Family; Visit Provider Internal Medicine
DX: N18.6 End stage renal disease (principal)
CPT/HCPCS: 36415

== ENCOUNTER 2018-11-27 11:54 | Outpatient (CLI) | payer MEDICARE, SELFPAY ==
[2018-11-27 12:23] LABS: Kit/Specimen SENT
== END 2018-11-27 12:14 ==
PROVIDERS: PCP Nurse Practitioner Family; Visit Provider Internal Medicine
DX: N18.6 End stage renal disease (principal); Z49.32 Encounter for adequacy testing for peritoneal dialysis
CPT/HCPCS: 36415

== ENCOUNTER 2018-12-17 12:52 | Outpatient (CLI) | payer MEDICARE, SELFPAY ==
[2018-12-17 13:11] LABS: Kit/Specimen SENT
== END 2018-12-17 13:12 ==
PROVIDERS: PCP Nurse Practitioner Family; Visit Provider Internal Medicine
DX: N18.6 End stage renal disease (principal); D64.9 Anemia, unspecified
CPT/HCPCS: 36415

== ENCOUNTER 2018-12-27 00:47 | Outpatient (CLI) | payer MEDICARE, SELFPAY ==
--- NOTE | 2018-12-27 07:43 | DI.US_ITS ---
SYMPTOM/DIAGNOSIS: 6 MO F/U LIVER MASSES, R16.0, HEPATOMEGALY ABDOMEN ULTRASOUND: Moderate ascites is noted. The previously described hepatic lesions seen on previous examinations including abdominal ultrasound of 10/03/18 are again noted and appear echogenic with appearance consistent with hepatic hemangioma. These measure about 21 mm. in diameter in the dome of the liver and about 11 mm. in greatest diameter in the inferior right hepatic lobe. Comparison is made with multiple previous examinations and shows probably little interval change but the lesion in the dome of the liver may be slightly larger than on previous examinations. A follow up examination is requested in 6 months.
== END 2018-12-27 01:07 ==
PROVIDERS: PCP Nurse Practitioner Family; Visit Provider Nurse Practitioner Family
DX: R16.0 Hepatomegaly, not elsewhere classified (principal); R18.8 Other ascites; D18.03 Hemangioma of intra-abdominal structures
CPT/HCPCS: 76700

== ENCOUNTER 2019-01-17 08:05 | Outpatient (CLI) | payer MEDICARE, SELFPAY ==
[2019-01-17 08:33] LABS: Kit/Specimen SENT
== END 2019-01-17 08:25 ==
PROVIDERS: PCP Nurse Practitioner Family; Visit Provider Internal Medicine
DX: N18.9 Chronic kidney disease, unspecified (principal)
CPT/HCPCS: 36415

== ENCOUNTER 2019-02-19 08:24 | Outpatient (CLI) | payer MEDICARE, SELFPAY ==
[2019-02-19 08:47] LABS: Kit/Specimen SENT
== END 2019-02-19 08:44 ==
PROVIDERS: PCP Nurse Practitioner Family; Visit Provider Internal Medicine
DX: N18.6 End stage renal disease (principal); Z49.32 Encounter for adequacy testing for peritoneal dialysis; N25.81 Secondary hyperparathyroidism of renal origin; E11.22 Type 2 diabetes mellitus with diabetic chronic kidney disease
CPT/HCPCS: 36415

== ENCOUNTER 2019-02-27 14:06 | Emergency (ER) | payer MEDICARE, SELFPAY ==
[2019-02-27] VITALS (87 sets, daily range): BP systolic 91–121; BP diastolic 58–74; PULSE 80–114; RESP 13–21; TEMP 36.4–37.1; O2SAT 91–100
--- NOTE | 2019-02-27 14:23 | DI.CT_ITS ---
SYMPTOM/DIAGNOSIS: PERITONEAL DIALYSIS, ABD PAIN CT ABDOMEN AND PELVIS: Noncontrast CT examination was performed. Comparison CT scan is 05/29/18. The lack of contrast does limit evaluation of the abdominal and pelvic organs. Atelectatic changes are seen in the lung bases. The liver is normal in size. There is again seen a 1.5 cm hypodense lesion at the lateral aspect of the right lobe of the liver and is unchanged. There is a second hypodense lesion seen in the inferior aspect of the right lobe of the liver posteriorly measuring 1.4 cm (Series 4, image 144 and Series 4, image 284) These are indeterminate on this noncontrast examination but are stable. The gallbladder is negative. There is no biliary ductal dilatation. The pancreas, spleen and adrenal glands are unremarkable. There is again seen bilateral renal cortical atrophy. The urinary bladder is intact and incompletely distended. Reproductive organs are unremarkable. There is a peritoneal catheter in place consistent with the patient's known peritoneal dialysis. There is fluid seen in the abdomen and pelvis likely reflecting dialysate. The bowel shows no evidence of obstruction or inflammation, The appendix is visualized. It measures 6-7 mm in the tip which is unchanged compared to the prior examination. The proximal portion is air filled. This likely is non-acute and related to the surrounding abdominal fluid. Appendicitis is considered less likely. Degenerative changes are seen in the spine. Small bilateral fat containing umbilical hernia are present. IMPRESSION: 1. Stable hypodense hepatic lesions, indeterminate on this noncontrast examination. If further imaging is warranted post contrast CT or MRI should be considered. 2. Peritoneal catheter, large amount of abdominal and pelvic fluid. This may reflect the peritoneal dialysis. 3. Stable appearance of the appendix which is mildly enlarged at the tip. This likely is chronic and reflective of the adjacent abdominal fluid. Acute appendicitis is considered less likely but please correlate clinically.
--- NOTE | 2019-02-27 14:24 | W.ED.GENAD ---
Discharge Plan Disposition Patient Disposition: [facility] Condition: Stable Discharge Details Chief Complaint: Abd Prob Clinical Impression: Peritonitis Primary Care Provider: Madie Thomas ED Provider: Yaniv Lin Home Meds and New Rx's Prescriptions: No Action amlodipine 10 mg tablet 10 mg PO DAILY Qty: 90 RF: 3 potassium chloride 20 mEq tablet extended release 20 meq PO DAILY RF: 0 sevelamer carbonate [Renvela] 800 MG tablet 800 mg PO TID RF: 0 Mary Ellen-Kaci 0.8 MG tablet 0.8 mg PO RF: 0 albuterol sulfate [ProAir HFA] 8.5 GM HFA aerosol inhaler 1 - 2 puff Inhalation Q4-6H PRN Qty: 1 RF: 1 OneTouch Ultra Test 1 EACH strip 1 ea Miscellaneous BID Qty: 200 RF: 0 calcitriol 0.25 MCG capsule 0.25 mcg PO DAILY RF: 0 metoprolol tartrate 50 MG tablet 50 mg PO BID Qty: 180 RF: 3 linagliptin 5 mg tablet 5 mg PO DAILY RF: 0 Flovent HFA 44 mcg/actuation HFA aerosol inhaler 1 inh Inhalation BID Qty: 3 RF: 3 pantoprazole 20 mg tablet,delayed release (DR/EC) 40 mg PO DAILY Qty: 90 RF: 3 atorvastatin 40 mg tablet 40 mg PO DAILY Qty: 90 RF: 3 sertraline 50 mg tablet 50 mg PO DAILY Qty: 90 RF: 3 docusate sodium [DOK] 100 mg capsule 200 mg PO DAILY Qty: 180 RF: 3 diphenhydramine HCl [Benadryl] 25 mg capsule 50 mg PO Q6H PRN (Reason: itching) Qty: 30 RF: 0 Discharge Data Discharge Date/Time-TO BE ENTERED AT DEPARTURE: 02/28/19 13:01 Medical Decision Making <Manan Duggan MD - Last Filed: 02/27/19 17:33> 63-year-old male diabetic who performs home dialysis. He presents with abdominal pain that began early this morning. He states that this morning his peritoneal dialysis fluid was cloudy after dwell with 15 L. He arrives a temperature 36.4, pulse 104, blood pressure 121/73. Differential diagnosis includes peritonitis, infected dialysis catheter. Peritoneal fluid obtained from catheter, blood cultures obtained, patient referred for laboratory testing including CBC, comprehensive, lactic acid. Diagnostic studies reveal white blood cell count of 18, elevated lactic acid, greater than 3400 white blood cells per cubic millimeter of peritoneal fluid with 95% neutrophils. Sodium 127. Anion gap 14. Bicarb 25, potassium 4.0. Lipase is somewhat elevated at 1257. Magnesium level 1.2 CT with ascites, unchanged liver lesion, unchanged appearance to appendix, peritoneal dialysis catheter in place. I am concerned for peritonitis in this gentleman with indwelling peritoneal dialysis catheter. Parenteral antibiotics were initiated with vancomycin and cefepime. Case discussed with Dr. Connie Kraft at the [facility] and the patient accepted in transfer Lab Data Lab results reviewed: Yes I reviewed the patient's lab results. Laboratory Results - last 24 hr 02/27/19 02/27/19 02/27/19 14:32 14:32 14:32 WBC 18.15 H RBC 5.20 Hgb 13.0 L Hct 38.8 L MCV 74.6 L MCH 25.0 L MCHC 33.5 RDW 15.9 H Plt Count 353 MPV 9.5 Immature Gran % 0.3 Neutrophils % 86.3 Lymphocytes % 7.0 Monocytes % 3.1 Eosinophils % 3.1 Basophils % 0.2 Absolute Neutrophils 15.66 H Absolute Lymphocytes 1.27 Absolute Monocytes 0.56 Absolute Eosinophils 0.56 Absolute Basophils 0.04 Differential Comment Diff reviewed RBC Morphology See below Microcytosis 1+ Sodium 127 L Potassium 4.0 Chloride 87 L Carbon Dioxide 25.3 Anion Gap 14.7 H BUN 69 H Creatinine 11.84 H* Estimated GFR/1.73 m2 4.33 Glucose 238 H Lactate 2.9 H* Calcium 8.9 Magnesium 1.2 L Total Bilirubin 0.2 AST 31 ALT 44 Alkaline Phosphatase 282 H Total Protein 8.4 H Albumin 3.2 L Lipase Fluid Source Fluid Color Fluid Appearance Fluid WBC Fluid Mononuclear Cell Fl Polymorphonucl Cell Path Cons Comment 02/27/19 02/27/19 14:32 14:32 WBC RBC Hgb Hct MCV MCH MCHC RDW Plt Count MPV Immature Gran % Neutrophils % Lymphocytes % Monocytes % Eosinophils % Basophils % Absolute Neutrophils Absolute Lymphocytes Absolute Monocytes Absolute Eosinophils Absolute Basophils Differential Comment RBC Morphology Microcytosis Sodium Potassium Chloride Carbon Dioxide Anion Gap BUN Creatinine Estimated GFR/1.73 m2 Glucose Lactate Calcium Magnesium Total Bilirubin AST ALT Alkaline Phosphatase Total Protein Albumin Lipase 1257 H Fluid Source Peritoneal Fluid Color Other Fluid Appearance Fluid WBC 3488 H Fluid Mononuclear Cell 5 H Fl Polymorphonucl Cell 95 H Path Cons Comment See comment <Ivan Root MD - Last Filed: 02/28/19 20:45> 22:45 - Patient was signed out to me pending transfer to [facility]. We recontacted [facility] around 10 PM this evening. Patient will not have a bed there until tomorrow. He has been stable here. He has received IV vancomycin and IV cefepime. I have repeated a lactic acid and it has come down. He is just receiving a second dose of pain medication now. I did ask to speak to nephrology at [facility]. I spoke to Dr. Newsome who states that the patient does not need any dialysis overnight. He will have a temporary catheter placed tomorrow when he gets to [facility] for hemodialysis. Agrees with repeating electrolytes in the morning. As long as patient is stable overnight in terms of vital signs and mental status he should be good until tomorrow when he gets to [facility]. I have discussed this with the patient, his who was present in the room, his daughters who were on the phone. They are understanding and agreeable to the plan. 07:10 - Repeat BMP with BUN/Cr up from last night as expected but lytes including potassium remain fine. Patient has been ambulating with stable vitals. Blood sugar this morning is 142. Breakfast ordered. Waiting for [facility] to call with bed. Patient to be signed over to Dr. Lin. Lab Data Lab results reviewed: Yes I reviewed the patient's lab results. <Yaniv Lin DO - Last Filed: 02/28/19 12:28> 9:15 AM The case was signed out to me by my colleague Dr. Root. Still pending bed placement at the [facility]. Vital signs remained stable, slightly tachycardic. He does have slight increase in abdominal pain. We will give some morphine for this. We will draw repeat labs this morning for reassessment. I did contact the [facility] to advocate for the patient for transfer as I felt that continued stay here in the ED was not the best interest of the patient especially with his dialysis needs. We have conveyed our concern, they are reassessing her current bed situation. 9:44 AM I did contact the circus artist at the [facility] Dr. Madyson Rutherford, we discussed antibiotics, his first dose of cefepime was at 1700 yesterday, and he recommends holding off on any additional antibiotics until it is been at or greater than 24 hours. His vancomycin needs no repeat dosing secondary to his severely poor renal function. We are still waiting on bed placement at this time. Patient remained stable. Pending repeat lab results. 12:27 AM Repeat labs demonstrate stability, lactate is still normal now, white count is relatively unchanged. We have a bed now at the [facility]. The patient will be transferred for definitive management there. Reassessment demonstrates an abdomen that is not acutely surgical. He appears stable, vital signs stable. At time of transfer the patient was reassessed and continued to demonstrate current medical stability. No signs of acute respiratory distress requiring intubation, hemodynamic instability requiring pressor support, or rapidly declining mental status. The patient is stable for transport. HPI <Manan Duggan MD - Last Filed: 02/27/19 17:33> General Mode of arrival: ambulatory. Date/Time Provider Initiated Documentation: 02/27/19 14:15. Limitations to Documentation: no limitations. Information obtained by: patient and family. History of Present Illness 63 year old M presents to the emergency department with the chief complaint of Abdominal pain, described as moderate, Quality is described as dull and constant, and is localized to the abdomen. Patient reports no radiation. Patient started experiencing this hour(s) and it has been constant. No relieving factors improve symptom(s), No exacerbating factors reported . Patient notes other (Loose stool at home. Continues to make urine. Did not note a fever but feels chilled). Patient did receive the following treatments prior to arrival, none Related Data Home Medications Medication Instructions Recorded Confirmed sevelamer carbonate [Renvela] 800 mg PO TID tab-cap 03/08/17 02/27/19 Mary Ellen-Kaci 0.8 mg PO 10/15/17 12/30/18 albuterol sulfate [ProAir HFA] 1 - 2 puff INHALATION Q4-6H PRN #1 10/15/17 02/27/19 inhaler OneTouch Ultra Test #200 strip 12/03/17 12/30/18 calcitriol 0.25 mcg PO DAILY tab-cap 01/07/18 02/27/19 metoprolol tartrate 50 mg PO BID #180 tab-cap 05/13/18 02/27/19 diphenhydramine HCl [Benadryl] 50 mg PO Q6H PRN #30 cap 06/15/18 02/27/19 amlodipine 10 mg tablet 10 mg PO DAILY #90 tab-cap 09/30/18 02/27/19 linagliptin 5 mg tablet 5 mg PO DAILY 11/27/18 02/27/19 potassium chloride ER 20 mEq 20 meq PO DAILY 12/30/18 12/30/18 tablet,extended release atorvastatin 40 mg tablet 40 mg PO DAILY #90 tab-cap 02/20/19 02/27/19 docusate sodium 100 mg capsule 200 mg PO DAILY #180 tab-cap 02/20/19 02/27/19 fluticasone propionate 44 1 inh INHALATION BID #3 gm 02/20/19 02/27/19 mcg/actuation HFA aerosol inhaler pantoprazole 20 mg tablet,delayed 40 mg PO DAILY #90 tab-cap 02/20/19 02/27/19 release sertraline 50 mg tablet 50 mg PO DAILY #90 tab-cap 02/20/19 02/27/19 Previous Rx's Medication Instructions Recorded albuterol sulfate [ProAir HFA] 1 - 2 puff INHALATION Q4-6H PRN #1 10/15/17 inhaler OneTouch Ultra Test #200 strip 12/03/17 metoprolol tartrate 50 mg PO BID #180 tab-cap 05/13/18 diphenhydramine HCl [Benadryl] 50 mg PO Q6H PRN #30 cap 06/15/18 amlodipine 10 mg tablet 10 mg PO DAILY #90 tab-cap 09/30/18 atorvastatin 40 mg tablet 40 mg PO DAILY #90 tab-cap 02/20/19 docusate sodium 100 mg capsule 200 mg PO DAILY #180 tab-cap 02/20/19 fluticasone propionate 44 1 inh INHALATION BID #3 gm 02/20/19 mcg/actuation HFA aerosol inhaler pantoprazole 20 mg tablet,delayed 40 mg PO DAILY #90 tab-cap 02/20/19 release sertraline 50 mg tablet 50 mg PO DAILY #90 tab-cap 02/20/19 Allergies Allergy/AdvReac Type Severity Reaction Status Date / Time No Known Allergies Allergy Unverified 02/27/19 14:14 General Stated Complaint: Abd Prob ANIL: 3 Review of Systems <Manan Duggan MD - Last Filed: 02/27/19 17:33> Review of Systems Patient reports cloudy dialysis fluid this morning at home. No known sick contacts. No recent upper respiratory illness. He continues to make urine a partially one cup per day. 8 systems reviewed and otherwise negative PFSH <Manan Duggan MD - Last Filed: 02/27/19 17:33> Medical History Hyperlipidemia, unspecified (Chronic) Type 2 diabetes mellitus (Chronic) Liver mass (Chronic) Vitamin D deficiency (Chronic) Sleep disorder (Chronic) Secondary hyperparathyroidism of renal origin (Chronic) Schwannoma of spinal cord (Inactive 11/23/15) Mild persistent asthma without complication (Chronic) Hypertensive left ventricular hypertrophy, without heart failure (Chronic) Fatigue (Chronic) Essential hypertension (Chronic) ESRD on peritoneal dialysis (Chronic) Depression (Chronic) Cardiomegaly (Chronic) Anemia (Chronic) Peritonitis associated with peritoneal dialysis (Resolved) HLD (hyperlipidemia) Surgical History Peritoneal Shunt (Resolved) T11-T12 Laminectomy & Subtotal Resection of a Schwannoma motor nerve root (Resolved 11/23/15) Tunneled hemodialysis catheter placement (Resolved 05/25/17) Family History Mother Osteoarthritis Father No problems noted. Brother No problems noted. Brother No problems noted. Brother No problems noted. Brother No problems noted. Sister No problems noted. Social History Smoking/Tobacco Use Status: Former Tobacco Use Alcohol Intake: former Drug use: Never Substance use type: does not use Caregiver/Support person: No Household members: spouse Number of Children: 2 Pets and animals: No Current gender identity: male What type of physical activity do you participate in: walking Duration: < 15 minutes/day Frequency: daily Seatbelt use: always Do you feel safe in your relationship?: Yes Exam <Manan Duggan MD - Last Filed: 02/27/19 17:33> Narrative Exam Narrative: GEN: awake, alert, oriented 3. Pleasant, well groomed, interactive. HEAD: Normocephalic, atraumatic ENT: Mucous membranes moist, oropharynx unremarkable, External ear exam unremarkable EYES: PERRL, EOMI NECK: Full ROM, no ZULEIKA, no menigismus CHEST/RESP: Nontender, clear to auscultation bilateral, no wheeze/rhonchi/rales CARDIOVASCULAR: Regular and with borderline tachycardia, no murmur, rub irena. 2+ Rad pulse bilateral ABDOMEN: Soft, tender throughout to deep pressure, right lower quadrant peritoneal dialysis catheter in site, no mass. +Bowel sounds EXT: Full ROM, no edema, no rash Neuro: Grossly normal neurologic exam, conversant, interactive. Psych: Speech fluent, thoughts congruent, affect normal Course <Manan Duggan MD - Last Filed: 02/27/19 17:33> Vital Signs Temperature 36.4 C L 02/27/19 14:11 Pulse 104 H 02/27/19 14:11 Respiratory Rate 18 02/27/19 14:11 Blood Pressure 121/73 02/27/19 14:11 Pulse Oximetry 98 02/27/19 14:11 Temperature 36.4 C L 02/27/19 14:11 Temperature Source Skin 02/27/19 14:11 Pulse 104 H 02/27/19 14:11 Respiratory Rate 18 02/27/19 14:11 Blood Pressure 121/73 02/27/19 14:11 Pulse Oximetry 98 02/27/19 14:11 Oxygen Delivery Method Room Air 02/27/19 14:11 Oxygen Flow Rate 0 02/27/19 14:11 Pain Level 9 02/27/19 14:11 Sign Out <Manan Duggan MD - Last Filed: 02/27/19 17:33> Sign Out Data: Sign Out Comment: accepted to [facility], pending bed Last updated by Manan Duggan MD at 02/27/19 19:41 Sign Out Comment: pending transfer to [facility] today Last updated by Ivan Root MD at 02/28/19 07:48
--- NOTE | 2019-02-27 14:28 | ED.GENADUL_ITS ---
Discharge Plan Disposition Patient Disposition: [facility] Condition: Stable Discharge Details Chief Complaint: Abd Prob Clinical Impression: Peritonitis Primary Care Provider: Madie Thomsa ED Provider: Yaniv Lin Home Meds and New Rx's Prescriptions: No Action amlodipine 10 mg tablet 10 mg PO DAILY Qty: 90 RF: 3 potassium chloride 20 mEq tablet extended release 20 meq PO DAILY RF: 0 sevelamer carbonate [Renvela] 800 MG tablet 800 mg PO TID RF: 0 Mary Ellen-Kaci 0.8 MG tablet 0.8 mg PO RF: 0 albuterol sulfate [ProAir HFA] 8.5 GM HFA aerosol inhaler 1 - 2 puff Inhalation Q4-6H PRN Qty: 1 RF: 1 OneTouch Ultra Test 1 EACH strip 1 ea Miscellaneous BID Qty: 200 RF: 0 calcitriol 0.25 MCG capsule 0.25 mcg PO DAILY RF: 0 metoprolol tartrate 50 MG tablet 50 mg PO BID Qty: 180 RF: 3 linagliptin 5 mg tablet 5 mg PO DAILY RF: 0 Flovent HFA 44 mcg/actuation HFA aerosol inhaler 1 inh Inhalation BID Qty: 3 RF: 3 pantoprazole 20 mg tablet,delayed release (DR/EC) 40 mg PO DAILY Qty: 90 RF: 3 atorvastatin 40 mg tablet 40 mg PO DAILY Qty: 90 RF: 3 sertraline 50 mg tablet 50 mg PO DAILY Qty: 90 RF: 3 docusate sodium [DOK] 100 mg capsule 200 mg PO DAILY Qty: 180 RF: 3 diphenhydramine HCl [Benadryl] 25 mg capsule 50 mg PO Q6H PRN (Reason: itching) Qty: 30 RF: 0 Discharge Data Discharge Date/Time-TO BE ENTERED AT DEPARTURE: 02/28/19 13:01 Medical Decision Making <Manan Duggan MD - Last Filed: 02/27/19 17:33> 63-year-old male diabetic who performs home dialysis. He presents with abdominal pain that began early this morning. He states that this morning his peritoneal dialysis fluid was cloudy after dwell with 15 L. He arrives a temperature 36.4, pulse 104, blood pressure 121/73. Differential diagnosis includes peritonitis, infected dialysis catheter. Peritoneal fluid obtained from catheter, blood cultures obtained, patient referred for laboratory testing including CBC, comprehensive, lactic acid. Diagnostic studies reveal white blood cell count of 18, elevated lactic acid, greater than 3400 white blood cells per cubic millimeter of peritoneal fluid with 95% neutrophils. Sodium 127. Anion gap 14. Bicarb 25, potassium 4.0. Lipase is somewhat elevated at 1257. Magnesium level 1.2 CT with ascites, unchanged liver lesion, unchanged appearance to appendix, peritoneal dialysis catheter in place. I am concerned for peritonitis in this gentleman with indwelling peritoneal dialysis catheter. Parenteral antibiotics were initiated with vancomycin and cefepime. Case discussed with Dr. Connie Kraft at the [facility] and the patient accepted in transfer Lab Data Lab results reviewed: Yes I reviewed the patient's lab results. Laboratory Results - last 24 hr 02/27/19 02/27/19 02/27/19 14:32 14:32 14:32 WBC 18.15 H RBC 5.20 Hgb 13.0 L Hct 38.8 L MCV 74.6 L MCH 25.0 L MCHC 33.5 RDW 15.9 H Plt Count 353 MPV 9.5 Immature Gran % 0.3 Neutrophils % 86.3 Lymphocytes % 7.0 Monocytes % 3.1 Eosinophils % 3.1 Basophils % 0.2 Absolute Neutrophils 15.66 H Absolute Lymphocytes 1.27 Absolute Monocytes 0.56 Absolute Eosinophils 0.56 Absolute Basophils 0.04 Differential Comment Diff reviewed RBC Morphology See below Microcytosis 1+ Sodium 127 L Potassium 4.0 Chloride 87 L Carbon Dioxide 25.3 Anion Gap 14.7 H BUN 69 H Creatinine 11.84 H* Estimated GFR/1.73 m2 4.33 Glucose 238 H Lactate 2.9 H* Calcium 8.9 Magnesium 1.2 L Total Bilirubin 0.2 AST 31 ALT 44 Alkaline Phosphatase 282 H Total Protein 8.4 H Albumin 3.2 L Lipase Fluid Source Fluid Color Fluid Appearance Fluid WBC Fluid Mononuclear Cell Fl Polymorphonucl Cell Path Cons Comment 02/27/19 02/27/19 14:32 14:32 WBC RBC Hgb Hct MCV MCH MCHC RDW Plt Count MPV Immature Gran % Neutrophils % Lymphocytes % Monocytes % Eosinophils % Basophils % Absolute Neutrophils Absolute Lymphocytes Absolute Monocytes Absolute Eosinophils Absolute Basophils Differential Comment RBC Morphology Microcytosis Sodium Potassium Chloride Carbon Dioxide Anion Gap BUN Creatinine Estimated GFR/1.73 m2 Glucose Lactate Calcium Magnesium Total Bilirubin AST ALT Alkaline Phosphatase Total Protein Albumin Lipase 1257 H Fluid Source Peritoneal Fluid Color Other Fluid Appearance Fluid WBC 3488 H Fluid Mononuclear Cell 5 H Fl Polymorphonucl Cell 95 H Path Cons Comment See comment <Ivan Root MD - Last Filed: 02/28/19 20:45> 22:45 - Patient was signed out to me pending transfer to [facility]. We recontacted [facility] around 10 PM this evening. Patient will not have a bed there until tomorrow. He has been stable here. He has received IV vancomycin and IV cefepime. I have repeated a lactic acid and it has come down. He is just receiving a second dose of pain medication now. I did ask to speak to nephrology at [facility]. I spoke to Dr. Newsome who states that the patient does not need any dialysis overnight. He will have a temporary catheter placed tomorrow when he gets to [facility] for hemodialysis. Agrees with repeating electrolytes in the morning. As long as patient is stable overnight in terms of vital signs and mental status he should be good until tomorrow when he gets to [facility]. I have discussed this with the patient, his who was present in the room, his daughters who were on the phone. They are understanding and agreeable to the plan. 07:10 - Repeat BMP with BUN/Cr up from last night as expected but lytes including potassium remain fine. Patient has been ambulating with stable vitals. Blood sugar this morning is 142. Breakfast ordered. Waiting for [facility] to call with bed. Patient to be signed over to Dr. Lin. Lab Data Lab results reviewed: Yes I reviewed the patient's lab results. <Yaniv Lin DO - Last Filed: 02/28/19 12:28> 9:15 AM The case was signed out to me by my colleague Dr. Root. Still pending bed placement at the [facility]. Vital signs remained stable, slightly tachycardic. He does have slight increase in abdominal pain. We will give some morphine for this. We will draw repeat labs this morning for reassessment. I did contact the [facility] to advocate for the patient for transfer as I felt that continued stay here in the ED was not the best interest of the patient especially with his dialysis needs. We have conveyed our concern, they are reassessing her current bed situation. 9:44 AM I did contact the manager investment banking at the [facility] Dr. Madyson Rutherford, we discussed antibiotics, his first dose of cefepime was at 1700 yesterday, and he recommends holding off on any additional antibiotics until it is been at or greater than 24 hours. His vancomycin needs no repeat dosing secondary to his severely poor renal function. We are still waiting on bed placement at this time. Patient remained stable. Pending repeat lab results. 12:27 AM Repeat labs demonstrate stability, lactate is still normal now, white count is relatively unchanged. We have a bed now at the [facility]. The patient will be transferred for definitive management there. Reassessment demonstrates an abdomen that is not acutely surgical. He appears stable, vital signs stable. At time of transfer the patient was reassessed and continued to demonstrate current medical stability. No signs of acute respiratory distress requiring intubation, hemodynamic instability requiring pressor support, or rapidly declining mental status. The patient is stable for transport. HPI <Manan Duggan MD - Last Filed: 02/27/19 17:33> General Mode of arrival: ambulatory . Date/Time Provider Initiated Documentation: 02/27/19 14:15 . Limitations to Documentation: no limitations . Information obtained by: patient and family . History of Present Illness 63 year old M presents to the emergency department with the chief complaint of Abdominal pain, described as moderate, Quality is described as dull and constant, and is localized to the abdomen. Patient reports no radiation. Patient started experiencing this hour(s) and it has been constant. No relieving factors improve symptom(s), No exacerbating factors reported . Patient notes other (Loose stool at home. Continues to make urine. Did not note a fever but feels chilled). Patient did receive the following treatments prior to arrival, none Related Data Home Medications Medication Instructions Recorded Confirmed sevelamer carbonate [Renvela] 800 mg PO TID tab-cap 03/08/17 02/27/19 Mary Ellen-Kaci 0.8 mg PO 10/15/17 12/30/18 albuterol sulfate [ProAir HFA] 1 - 2 puff INHALATION Q4-6H PRN #1 10/15/17 02/27/19 inhaler OneTouch Ultra Test #200 strip 12/03/17 12/30/18 calcitriol 0.25 mcg PO DAILY tab-cap 01/07/18 02/27/19 metoprolol tartrate 50 mg PO BID #180 tab-cap 05/13/18 02/27/19 diphenhydramine HCl [Benadryl] 50 mg PO Q6H PRN #30 cap 06/15/18 02/27/19 amlodipine 10 mg tablet 10 mg PO DAILY #90 tab-cap 09/30/18 02/27/19 linagliptin 5 mg tablet 5 mg PO DAILY 11/27/18 02/27/19 potassium chloride ER 20 mEq 20 meq PO DAILY 12/30/18 12/30/18 tablet,extended release atorvastatin 40 mg tablet 40 mg PO DAILY #90 tab-cap 02/20/19 02/27/19 docusate sodium 100 mg capsule 200 mg PO DAILY #180 tab-cap 02/20/19 02/27/19 fluticasone propionate 44 1 inh INHALATION BID #3 gm 02/20/19 02/27/19 mcg/actuation HFA aerosol inhaler pantoprazole 20 mg tablet,delayed 40 mg PO DAILY #90 tab-cap 02/20/19 02/27/19 release sertraline 50 mg tablet 50 mg PO DAILY #90 tab-cap 02/20/19 02/27/19 Previous Rx's Medication Instructions Recorded albuterol sulfate [ProAir HFA] 1 - 2 puff INHALATION Q4-6H PRN #1 10/15/17 inhaler OneTouch Ultra Test #200 strip 12/03/17 metoprolol tartrate 50 mg PO BID #180 tab-cap 05/13/18 diphenhydramine HCl [Benadryl] 50 mg PO Q6H PRN #30 cap 06/15/18 amlodipine 10 mg tablet 10 mg PO DAILY #90 tab-cap 09/30/18 atorvastatin 40 mg tablet 40 mg PO DAILY #90 tab-cap 02/20/19 docusate sodium 100 mg capsule 200 mg PO DAILY #180 tab-cap 02/20/19 fluticasone propionate 44 1 inh INHALATION BID #3 gm 02/20/19 mcg/actuation HFA aerosol inhaler pantoprazole 20 mg tablet,delayed 40 mg PO DAILY #90 tab-cap 02/20/19 release sertraline 50 mg tablet 50 mg PO DAILY #90 tab-cap 02/20/19 Allergies Allergy/AdvReac Type Severity Reaction Status Date / Time No Known Allergies Allergy Unverified 02/27/19 14:14 General Stated Complaint: Abd Prob ANIL: 3 Review of Systems <Manan Duggan MD - Last Filed: 02/27/19 17:33> Review of Systems Patient reports cloudy dialysis fluid this morning at home. No known sick c ontacts. No recent upper respiratory illness. He continues to make urine a partially one cup per day. 8 systems reviewed and otherwise negative PFSH <Manan Duggan MD - Last Filed: 02/27/19 17:33> Medical History Hyperlipidemia, unspecified (Chronic) Type 2 diabetes mellitus (Chronic) Liver mass (Chronic) Vitamin D deficiency (Chronic) Sleep disorder (Chronic) Secondary hyperparathyroidism of renal origin (Chronic) Schwannoma of spinal cord (Inactive 11/23/15) Mild persistent asthma without complication (Chronic) Hypertensive left ventricular hypertrophy, without heart failure (Chronic) Fatigue (Chronic) Essential hypertension (Chronic) ESRD on peritoneal dialysis (Chronic) Depression (Chronic) Cardiomegaly (Chronic) Anemia (Chronic) Peritonitis associated with peritoneal dialysis (Resolved) HLD (hyperlipidemia) Surgical History Peritoneal Shunt (Resolved) T11-T12 Laminectomy & Subtotal Resection of a Schwannoma motor nerve root ( Resolved 11/23/15) Tunneled hemodialysis catheter placement (Resolved 05/25/17) Family History Mother Osteoarthritis Father No problems noted. Brother No problems noted. Brother No problems noted. Brother No problems noted. Brother No problems noted. Sister No problems noted. Social History Smoking/Tobacco Use Status: Former Tobacco Use Alcohol Intake: former Drug use: Never Substance use type: does not use Caregiver/Support person: No Household members: spouse Number of Children: 2 Pets and animals: No Current gender identity: male What type of physical activity do you participate in: walking Duration: < 15 minutes/day Frequency: daily Seatbelt use: always Do you feel safe in your relationship?: Yes Exam <Manan Duggan MD - Last Filed: 02/27/19 17:33> Narrative Exam Narrative: GEN: awake, alert, oriented 3. Pleasant, well groomed, interactive. HEAD: Normocephalic, atraumatic ENT: Mucous membranes moist, oropharynx unremarkable, External ear exam unre markable EYES: PERRL, EOMI NECK: Full ROM, no ZULEIKA, no menigismus CHEST/RESP: Nontender, clear to auscultation bilateral, no wheeze/rhonchi/rales CARDIOVASCULAR: Regular and with borderline tachycardia, no murmur, rub irena. 2+ Rad pulse bilateral ABDOMEN: Soft, tender throughout to deep pressure, right lower quadrant peritoneal dialysis catheter in site, no mass. +Bowel sounds EXT: Full ROM, no edema, no rash Neuro: Grossly normal neurologic exam, conversant, interactive. Psych: Speech fluent, thoughts congruent, affect normal Course <Manan Duggan MD - Last Filed: 02/27/19 17:33> Vital Signs Temperature 36.4 C L 02/27/19 14:11 Pulse 104 H 02/27/19 14:11 Respiratory Rate 18 02/27/19 14:11 Blood Pressure 121/73 02/27/19 14:11 Pulse Oximetry 98 02/27/19 14:11 Temperature 36.4 C L 02/27/19 14:11 Temperature Source Skin 02/27/19 14:11 Pulse 104 H 02/27/19 14:11 Respiratory Rate 18 02/27/19 14:11 Blood Pressure 121/73 02/27/19 14:11 Pulse Oximetry 98 02/27/19 14:11 Oxygen Delivery Method Room Air 02/27/19 14:11 Oxygen Flow Rate 0 02/27/19 14:11 Pain Level 9 02/27/19 14:11 Sign Out <Manan Duggan MD - Last Filed: 02/27/19 17:33> Sign Out Data: Sign Out Comment: accepted to [facility], pending bed Last updated by Manan Duggan MD at 02/27/19 19:41 Sign Out Comment: pending transfer to [facility] today Last updated by Ivan Root MD at 02/28/19 07:48
[2019-02-27] MEDS: HYDROmorphone 2 MG/ML VIAL 0.5 MG IVP ×2 (14:40→22:46)
[2019-02-27 14:44] LABS: Lactate 2.9 mmol/L (0.6-1.4)
[2019-02-27 14:59] LABS: ALT 44 U/L (12-78); AST 31 U/L (15-37); Albumin 3.2 g/dL (3.4-5.0); Alkaline Phosphatase 282 U/L (46-116); Anion Gap 14.7 mmol/L (3-11); BUN 69 mg/dL (7-18); Bilirubin, Total 0.2 mg/dL (0.2-1.0); CO2 25.3 mmol/L (21.0-32.0); Calcium 8.9 mg/dL (8.5-10.1); Chloride 87 mmol/L (98-107); Estimated GFR 4.33 (mL/min/1.73m2); Glucose 238 mg/dL (70-100); Magnesium 1.2 mg/dL (1.8-2.4); Sodium 127 mmol/L (136-145); Total Protein 8.4 g/dL (6.4-8.2)
--- NOTE | 2019-02-27 15:03 | NUR.NOTE ---
Nursing Note: lab at bedside to obtain blood cultures
[2019-02-27 15:04] LABS: CREATININE 11.84 mg/dL (0.70-1.30)
[2019-02-27 15:11] LABS: Lipase 1257 U/L (73-393)
[2019-02-27 15:21] LABS: Abs Immature Grans 0.05 k/cumm (0.0-0.09); Absolute Eosinophil Count 0.56 k/cumm (0.0-0.7); Absolute Lymphocyte Count 1.27 k/cumm (1.2-3.4); Basophils % 0.2; Eosinophils % 3.1; HCT 38.8 % (40.0-50.0); Immature Grans % 0.3; Mean Corp. HGB Concentration 33.5 g/dL (32.0-36.0); Mean Corpuscular Volume 74.6 fL (80-95); Mean Platelet Volume 9.5 fL (8.0-11.0); Monocytes % 3.1; Neutrophils % 86.3; Platelet Count 353 x1000/uL (130-400); RBC Distribution Width 15.9 % (11.8-14.1); White Blood Cell Count 18.15 k/cumm (4.4-10.8)
[2019-02-27 15:22] LABS: Absolute Basophil Count 0.04 k/cumm (0.0-0.2); Absolute Monocyte Count 0.56 k/cumm (0.11-0.7); Absolute Neutrophil Count 15.66 k/cumm (1.2-6.7)
[2019-02-27 15:23] LABS: Diff Comment Diff Reviewed; Microcytosis 1+
[2019-02-27 15:37] LABS: Source PERITONEAL
[2019-02-27 15:38] LABS: Mononuclear Cells 5 % (0-0); Nucleated Cells 3488 /MM3 (0-0); Polynuclear Cells 95 % (0-0)
--- NOTE | 2019-02-27 15:50 | NUR.NOTE ---
Nursing Note: pt returned from CT
[2019-02-27] MEDS: Normal Saline 1,000 ML 200 ML IV (16:45)
[2019-02-27] MEDS: MAGNESIUM SULFATE 1 GM/100 ML BAG IVPB (16:55)
--- NOTE | 2019-02-27 17:00 | DI.VRAD_ITS ---
EXAM: CT Abdomen and Pelvis Without Contrast EXAM DATE/TIME: 02/27/2019 3:45 PM CLINICAL HISTORY: 63 years old, male; Generalized; Patient HX: Peritoneal dialysis, abdominal pain TECHNIQUE: Imaging protocol: Axial computed tomography images of the abdomen and pelvis without contrast. Coronal and sagittal reformatted images were created and reviewed. COMPARISON: DI.CTAPWO 05/29/2018 8:38 PM FINDINGS: Tubes, catheters and devices: Peritoneal dialysis catheter enters the RIGHT anterior abdominal wall and is coiled in the pelvis. No fluid collections along the extra abdominal course of the catheter. Lungs: Bibasilar atelectasis. No pleural effusions. Heart: Mild cardiomegaly. Trace pericardial fluid. Coronary artery calcification. ABDOMEN: Liver: Hypoattenuating ill-defined lesion in the RIGHT lobe of the liver, at the dome measuring 1.5 cm and inferior RIGHT lobe measuring 1.4 cm unchanged since previous exam, incompletely evaluated without intravenous contrast. Liver is normal in size. Normal contour. Gallbladder and bile ducts: The gall bladder is normal in size. There is no gall bladder wall thickening. There are no gallstones or pericholecystic collection. The common duct and intrahepatic ducts are normal in caliber. Pancreas: The pancreas is normal in size and density. There are no pancreatic calcifications or ductal dilatation. No peripancreatic inflammatory change. Spleen: The spleen is normal in size. No focal splenic lesions are noted. Adrenals: The adrenal glands are normal in size without focal mass. Kidneys and ureters: Severe bilateral renal atrophy No hydronephrosis. No obstructing renal calculi. No renal mass. Stomach and bowel: Normal. No obstruction. No mucosal thickening. Appendix: The proximal appendix is air-filled and normal in caliber measuring 6 mm in diameter. The distal appendix measures 6-7 mm in diameter and there is surrounding fluid and mild fat stranding. However, these findings may be on the basis of the large quantity of abdominal ascites, and the appearance of the distal appendix is similar to the previous CT scan. Appendicitis is unlikely to be correlated clinically. PELVIS: Bladder: The bladder is contracted fat density is identified in the anterior limb of the bladder, unchanged. The bladder wall is thickened. No bladder calculi. Reproductive: Unremarkable as visualized. ABDOMEN and PELVIS: Intraperitoneal space: Moderate to extensive abdominal and pelvic ascites most likely related to peritoneal dialysis. Slightly progressive previous exam. No free to peritoneal air. Bones/joints: Degenerative changes of the lumbar spine. No acute fracture. T11 and T12 laminectomy. Soft tissues: Periumbilical scarring. Small bilateral fat containing inguinal hernias. 4 cm lipoma RIGHT lower thoracic paraspinal musculature. Vasculature: Atherosclerotic calcification of the nonaneurysmal abdominal aorta. Lymph nodes: Unremarkable. No enlarged lymph nodes. IMPRESSION: 1. Moderate to extensive abdominal and pelvic ascites likely related to peritoneal dialysis, slightly progressive since previous exam. 2. Slight enlargement of the distal appendix with surrounding fluid and fat stranding, essentially unchanged since previous examination and likely related to peritoneal fluid. Tip appendicitis is unlikely but should be correlated clinically. 3. Redemonstration of indeterminate hepatic lesions in the RIGHT lobe. Further evaluation with contrast-enhanced imaging were required sonography could be performed for characterization. 4. Peritoneal dialysis catheter. 5. Additional incidental/nonemergent findings as discussed above. Dictated and Authenticated by: Birdie Kirby MD. Ordering:MEGHA Hinkle MD
[2019-02-27] MEDS: CEFEPIME 1 GM in Normal Saline 50 ML IVPB (17:41)
[2019-02-27] MEDS: VANCOMYCIN 1,500 MG in Normal Saline 250 ML 166.6666 MG IVPB (18:09)
--- NOTE | 2019-02-27 18:45 | NUR.NOTE ---
Nursing Note: Report given to night warehouse selector RN.
--- NOTE | 2019-02-27 20:12 | NUR.NOTE ---
Nursing Note: Pt given renal diet tray.
[2019-02-27 22:11] LABS: Lactate-non-spesis 1.8 mmol/l (0.6-1.4)
--- NOTE | 2019-02-27 22:18 | NUR.NOTE ---
Nursing Note: Dr. Root in at bedside to speak with pt and his family. Pt given update on his transfer status.
--- NOTE | 2019-02-27 22:54 | NUR.NOTE ---
Nursing Note: Pt medicated as ordered by ER MD for c/o abd pain. Lights turned off in room and door closed per pt request.
[2019-02-28] VITALS (51 sets, daily range): BP systolic 108–122; BP diastolic 52–71; PULSE 90–118; RESP 18–20; TEMP 37.1–37.2; O2SAT 87–99
--- NOTE | 2019-02-28 04:01 | NUR.NOTE ---
Nursing Note: Pt up to bathroom. Asked to sit on edge of bed for a bit. Pt states he is feeling better.
[2019-02-28 06:27] LABS: Anion Gap 13.4 mmol/L (3-11); CO2 23.6 mmol/L (21.0-32.0); Calcium 8.7 mg/dL (8.5-10.1); Chloride 92 mmol/L (98-107); Estimated GFR 3.73 (mL/min/1.73m2); Glucose 131 mg/dL (70-100); Potassium 3.6 mmol/L (3.5-5.1); Sodium 129 mmol/L (136-145)
[2019-02-28 06:34] LABS: BUN 80 mg/dL (7-18); CREATININE 13.46 mg/dL (0.70-1.30)
[2019-02-28 09:37] LABS: Lactate-non-spesis 1.2 mmol/l (0.6-1.4)
[2019-02-28] MEDS: Normal Saline Flush 10 ML SYR IVP (09:39)
[2019-02-28] MEDS: MORPHine 10 MG/ML VIAL 4 MG IVP (09:39)
[2019-02-28 09:40] LABS: Abs Immature Grans 0.06 k/cumm (0.0-0.09); Absolute Basophil Count 0.02 k/cumm (0.0-0.2); Absolute Eosinophil Count 0.02 k/cumm (0.0-0.7); Absolute Lymphocyte Count 1.16 k/cumm (1.2-3.4); Absolute Neutrophil Count 16.55 k/cumm (1.2-6.7); Basophils % 0.1; Eosinophils % 0.1; HGB 10.9 g/dL (13.5-17.5); Immature Grans % 0.3; Lymphocytes % 6.2; Mean Corp. HGB Concentration 34.1 g/dL (32.0-36.0); Mean Corpuscular Hemoglobin 25.4 pg (27.0-33.0); Mean Corpuscular Volume 74.6 fL (80-95); Mean Platelet Volume 9.8 fL (8.0-11.0); Monocytes % 5.1; Neutrophils % 88.2; Platelet Count 277 x1000/uL (130-400); RBC 4.29 m/cumm (4.50-6.00); RBC Distribution Width 15.6 % (11.8-14.1); White Blood Cell Count 18.76 k/cumm (4.4-10.8)
[2019-02-28 09:44] LABS: Absolute Monocyte Count 0.96 k/cumm (0.11-0.7)
[2019-02-28] MEDS: Ondansetron 4 MG/2 ML VIAL (09:48)
[2019-02-28 10:00] LABS: ALT 29 U/L (12-78); AST 20 U/L (15-37); Albumin 2.3 g/dL (3.4-5.0); Alkaline Phosphatase 183 U/L (46-116); Anion Gap 13.6 mmol/L (3-11); Bilirubin, Total 0.4 mg/dL (0.2-1.0); CO2 24.4 mmol/L (21.0-32.0); Calcium 8.8 mg/dL (8.5-10.1); Chloride 91 mmol/L (98-107); Estimated GFR 3.55 (mL/min/1.73m2); Glucose 157 mg/dL (70-100); Potassium 3.5 mmol/L (3.5-5.1); Sodium 129 mmol/L (136-145); Total Protein 6.7 g/dL (6.4-8.2)
[2019-02-28 10:03] LABS: BUN 82 mg/dL (7-18); CREATININE 14.05 mg/dL (0.70-1.30)
[2019-02-28] MEDS: Pantoprazole 40 MG TABCR PO (10:37)
[2019-02-28] MEDS: Sertraline 50 MG TAB PO (11:03)
[2019-02-28] MEDS: Atorvastatin 40 MG TAB PO (11:03)
== END 2019-02-28 13:01 ==
PROVIDERS: Emergency Medicine; Emergency Provider Student in an Organized Health Care Education/Training Program; PCP Nurse Practitioner Family
DX: K65.9 Peritonitis, unspecified (principal); I11.9 Hypertensive heart disease without heart failure; R18.8 Other ascites; E11.22 Type 2 diabetes mellitus with diabetic chronic kidney disease; N18.6 End stage renal disease; Z99.2 Dependence on renal dialysis
CPT/HCPCS: 36410; 36415; 80048; 80053; 83690; 87040; 87077; 96361; 96365; 96367; 96368; 99285; 74176; 83605; 83735; 85025; 87070; 87186; 87205; 89051; 99284; J2270; J2405; J3475

== ENCOUNTER 2019-03-19 10:58 | Outpatient (CLI) | payer MEDICARE, SELFPAY ==
[2019-03-19 17:44] LABS: Kit/Specimen SENT
== END 2019-03-19 11:18 ==
PROVIDERS: PCP Nurse Practitioner Family; Visit Provider Internal Medicine
DX: N18.6 End stage renal disease (principal)
CPT/HCPCS: 36415

== ENCOUNTER 2019-03-28 11:03 | Outpatient (CLI) | payer MEDICARE, SELFPAY ==
[2019-03-28 11:21] LABS: Kit/Specimen SENT
[2019-03-28 12:15] LABS: Calculated LDL 32 mg/dL; Cholesterol 125 mg/dL (50-200); HDL Cholesterol 29 mg/dL (40-60); Triglyceride 321 mg/dL (30-150)
== END 2019-03-28 11:23 ==
PROVIDERS: Nurse Practitioner Family; PCP Student in an Organized Health Care Education/Training Program; Visit Provider Internal Medicine
DX: E78.5 Hyperlipidemia, unspecified (principal)
CPT/HCPCS: 36415; 80061; 83721